=== PATIENT | female | born 1970 | race Caucasian/White ===

== ENCOUNTER 2017-10-11 16:59 | Emergency (ER) | payer BC ==
[~2017-10-11] VITALS: Ht 162.5 cm; Wt 108.9 kg
[~2017-10-11 16:59] MED LIST: ATIVAN1 MG PO; BACTRIM DS 8001 TA1 PO; BENTYL20 MG PO; CATAFLAM50 MG PO; CLINDAMYCIN HC300 MG PO; CORTISPORIN SUS10 ML OT; CYCLOBENZAPRINE10 MG PO; DIABETA5 MG PO; EES400 MG PO; GLUCOPHAGE1000 MG; GLUCOPHAGE1000 MG PO; GLUCOPHAGE500 MG; GLUCOPHAGE500 MG PO; HYDROCODONE BIT1 T11 PO; LEVOFLOXACIN500 MG PO; LEVOTHROID0.137 MG PO; LISINOPRIL10 MG PO; LISINOPRIL20 MG PO; LISINOPRIL5 MG PO; MEDROL DOSEPAK4 MG PO; METFORMIN1000 MG PO; METFORMIN500 MG PO; MOTRIN800 MG PO; NAPROSYN500 MG PO; NORCO 5-325 TA1 EACH PO; PHENERGAN25 M1 PO; PREDNISONE20 MG PO; PYRIDIUM200 M1 PO; PYRIDIUM200 MG PO; ROBITUSSIN AC 10 MG/ PO; ROBITUSSIN AC 110 ML PO; SYNTHROID,LEV150 MCG PO; SYNTHROID25 MCG PO; TAMIFLU 75MG CA75 MG PO; TRAJENTA; TRAMADOL HCL50 MG PO; TYLENOL WITH CO1 TA1 PO; VISTARIL25 MG PO; ZITHROMAX Z PA250 MG PO; ZITHROMAX250 MG PO; ZOFRAN4 MG PO; Zofran4 MG PO
[2017-10-11] MEDS ORDERED: OMNICEF300 MG PO (17:12)
== END 2017-10-11 17:21 | disposition home or self-care (01) ==
LOC: ED 16:59
DX: H65.92 Unspecified nonsuppurative otitis media, left ear (principal); E11.9 Type 2 diabetes mellitus without complications; Z88.0 Allergy status to penicillin; Z88.5 Allergy status to narcotic agent; Z88.8 Allergy status to other drugs, medicaments and biological substances; Z79.899 Other long term (current) drug therapy

== ENCOUNTER 2017-11-19 16:44 | Emergency (ER) | payer BC ==
[~2017-11-19 16:44] MED LIST changes: +OMNICEF300 MG PO
[2017-11-19 17:31] LABS: BASO # 0.1 10*3/uL (0.0-0.1); BASO % 0.7 % (0.0-1.0); EOS # 0.4 10*3/uL (0.0-0.4); EOS % 4.3 % (1.0-4.0); HEMOGLOBIN 14.8 g/dl (12.0-16.0); LYMPH # 2.3 10*3/uL (1.3-4.4); LYMPH % 27.2 % (27.0-41.0); MEAN CORPUSCULAR HGB 29.2 pg (27.0-31.0); MEAN CORPUSCULAR HGB CONC 33.6 g/dl (33.0-37.0); MEAN PLATELET VOLUME 11.1 fl (9.6-12.3); MONO # 0.5 10*3/uL (0.1-1.0); MONO % 5.7 % (3.0-9.0); NEUT # 5.3 10*3/uL (2.3-7.9); NEUT % 61.7 % (47.0-73.0); PLATELET COUNT AUTOMATED 276 10*3/uL (130-400); RED BLOOD COUNT 5.06 10*6/uL (4.10-5.10); RED CELL DISTRI WIDTH 13.4 % (0-14.5); WHITE BLOOD COUNT 8.6 10*3/uL (4.8-10.8)
[2017-11-19 17:47] LABS: ALBUMIN 4.1 gm/dl (3.1-4.5); ALKALINE PHOSPHATASE 100 U/L (45-117); BUN 14 mg/dl (7-24); CHLORIDE 106 mmol/L (98-107); CREATININE 0.85 mg/dL (0.55-1.02); POTASSIUM 4.2 mmol/L (3.5-5.1); SGOT/AST 25 IU/L (3-35); SGPT/ALT 50 U/L (12-78); SODIUM 138 mmol/L (136-145)
== END 2017-11-19 19:08 | disposition home or self-care (01) ==
LOC: ED 16:44
PROVIDERS: Nurse Practitioner Family
DX: R51 Headache (principal); R03.0 Elevated blood-pressure reading, without diagnosis of hypertension; E23.6 Other disorders of pituitary gland; E11.9 Type 2 diabetes mellitus without complications; Z79.899 Other long term (current) drug therapy; Z98.890 Other specified postprocedural states; Z88.5 Allergy status to narcotic agent; Z88.0 Allergy status to penicillin

== ENCOUNTER → 2017-12-22 | Outpatient (CLI) | payer BC ==
[~2017-12-22] MED LIST changes: +CIPRO500 MG PO; +COZAAR100 MG PO; +GLYBURIDE5 MG PO; +LEVOTHYROXINE150 MCG PO; +VICTOZA 3-PAK6 MG/ML SC; +ZOCOR5 MG PO
== END | disposition home or self-care (01) ==
LOC: MRI 10:37
DX: D32.0 Benign neoplasm of cerebral meninges (principal); H53.8 Other visual disturbances; H35.81 Retinal edema

== ENCOUNTER → 2018-01-18 | Outpatient (CLI) | payer BC | END | disposition home or self-care (01) | LOC: LAB 16:31 | DX: D35.2 Benign neoplasm of pituitary gland (principal) ==

== ENCOUNTER → 2018-01-31 | Outpatient (CLI) | payer BC ==
[2018-01-31 17:28] LABS: FREE T4 1.16 ng/dl (0.76-1.46); THYROID STIM HORMONE (HS) 0.924 uIU/ml (0.358-4.75)
[2018-02-01 08:07] LABS: FOLLICLE STIMULATING HORMONE 2.9 mIU/mL (.); LUTEINIZING HORMONE 004283 4.8 mIU/mL (.)
== END | disposition home or self-care (01) ==
LOC: LAB 16:21
PROVIDERS: Physician Assistant
DX: R22.0 Localized swelling, mass and lump, head (principal)

== ENCOUNTER → 2018-02-09 | Outpatient (CLI) | payer BC | END | disposition home or self-care (01) | LOC: MRI 12:48 | DX: H54.7 Unspecified visual loss (principal); R22.0 Localized swelling, mass and lump, head ==

== ENCOUNTER → 2018-02-14 | Outpatient (CLI) | payer BC ==
[2018-02-17 17:35] LABS: CORTISONE, URINE 52 ug/L (Undefined)
== END | disposition home or self-care (01) ==
LOC: LAB 08:00
PROVIDERS: Physician Assistant
DX: R22.0 Localized swelling, mass and lump, head (principal)

== ENCOUNTER → 2018-03-03 | Outpatient (CLI) | payer BC ==
--- NOTE | ~2018-03-03 | EKG ---
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
== END | disposition home or self-care (01) ==
LOC: RAD 15:50
DX: R22.0 Localized swelling, mass and lump, head (principal)

== ENCOUNTER 2018-05-12 13:23 | Inpatient (IN) | payer BC ==
[~2018-05-12] VITALS: Ht 162.6 cm; Wt 141.0 kg
--- NOTE | ~2018-05-12 | PR ---
[place], [place] PROGRESS NOTE NAME: MARIBEL MEYER UNIT #: [id number] ROOM: 424 DOCTOR: BRIDGET YEAGER MD,CASEY BIRTHDATE: [birth year] DOS: 05/15/2018 PULMONARY PROGRESS NOTE SUBJECTIVE: The patient stated reduction in respiratory symptoms of coughing and reduction of symptoms of shortness of breath. There were no symptoms of dizziness or headache. She has been ambulating to some extent with decreased shortness of breath symptoms. Denies symptoms of chest pain. Denies symptoms of hemoptysis. Denies symptoms of nausea or vomiting. OBJECTIVE: VITAL SIGNS: Which were recorded showed normal temperature, respiratory rate 18, heart rate 82, blood pressure 112/49 this afternoon. The pulse ox saturation at rest on room air was 97% saturation. HEENT: Head was atraumatic. Eyes nonicterus. NECK: Supple. CARDIOVASCULAR: S1 and S2 audible. LUNGS: Without any wheeze or crackles. ABDOMEN: Soft, nontender, bowel sounds present. EXTREMITIES: No acute edema. IMPRESSION: 1. The patient with stable respiratory status with acute pulmonary embolism, which has been improving gradually with current plan of treatment. 2. The patient with chronic obesity as well. 3. Status post recent removal of meningioma of the brain. PLAN OF THERAPY: No changes in the plan of care from pulmonary standpoint. Continue the current therapy and plan as is in progress without any changes. Consider possible discharge in the morning on oral anticoagulant as Xarelto. CASEY GILL MD CM:PNTRANS 1739 CASEY YEAGER MD 05/16/18 0312 interface
--- NOTE | ~2018-05-12 | CON ---
[place], [place] REPORT OF CONSULTATION NAME: MARIBEL MEYER UNIT #: [id number] ROOM: 424 DOCTOR: BRIDGET YEAGER MDCASEY BIRTHDATE: [birth year] DOS: 05/13/2018 PULMONARY CONSULTATION EVALUATION AND MANAGEMENT: REASON FOR CONSULTATION: Assess the patient for current acute thromboembolism and pulmonary embolism. HISTORY OF PRESENT ILLNESS: This is a 47-year-old white female patient who has been recently known with a diagnosis of meningioma of the brain. The patient underwent craniotomy in late 02/2018. She has been noted with the possibility of adrenal insufficiency. The patient was given the Decadron later on hydrocortisone for 2 weeks. With the use of corticosteroids, the patient has been noted significant weight gain. For the past one week, she started with having symptoms of exercise intolerance with increased shortness of breath, which worsened significantly. Shortness of breath currently, occurring for the patient prior to assess emergent with walking only few feet on level surface. She was also complaining of some discomfort in the back of the chest, but stated there was not a true pleuritic chest pain. She has called the physician diploma medical assistant patient in [facility] as she has been followed up by the surgeon and was advised to be assessed patient in the Emergency Room for further assessment. She has been assessed in the Emergency Room and were noted with acute pulmonary embolism. She was also complaining of symptoms of dizziness and stating that she was feeling that she may pass out, but has not had any unconsciousness. REVIEW OF SYSTEMS: CONSTITUTIONAL: She does complain of fatigue. There are no symptoms of fatigue or tiredness. EYES: Denies any burning, redness, or tenderness. EARS, NOSE, THROAT SYMPTOMS: Denies sore throat, hoarseness, otalgia, postnasal drainage or epistaxis. CARDIOVASCULAR: Denies any angina pain keep edema or pain of the lower extremities. GASTROINTESTINAL: Dysphagia, nausea, vomiting, diarrhea, abdominal pain, hematemesis, melena, or hematochezia. GENITOURINARY: Denies dysuria, suprapubic pain, hematuria. MUSCULOSKELETAL: No acute joint pain, redness, or tenderness. GENITOURINARY: Symptoms of dysuria, suprapubic pain, hematuria. CENTRAL NERVOUS SYSTEM: Denies dizziness, headache at this time. Symptoms of dizziness, which are reported at home, has not been present at this time. Diagnosis of seizures, status post craniotomy in 02/2018 for meningioma management. Remaining systems were reviewed. They were noted all negative. PAST MEDICAL HISTORY: 1. Meningioma with craniotomy in 02/2008 at [facility]. 2. Type 2 diabetes mellitus, poorly controlled. 3. Essential hypertension. 4. Hypothyroidism. [place], [place] REPORT OF CONSULTATION NAME: MARIBEL MEYER UNIT #: [id number] ROOM: [facility] DOCTOR: CASEY VALDES MD BIRTHDATE: [birth year] 5. Severe obesity. SOCIAL HISTORY: He is single, does not have any children. She has been noted very low grade tobacco use about half a pack of cigarettes per week, ____. Denies any alcohol use or any illicit drugs. FAMILY HISTORY: The patient's father is living 70 years old, currently in the nursing facility. Mother is living 60 years old without any known medical illnesses. MEDICATIONS: Medications, which were listed at home on admission in the medication reconciliation assessment. 1. Coreg 6.25 mg b.i.d. 2. Pepcid 20 mg p.o. b.i.d. 3. Hydrocortisone tablets 20 mg p.o. at 8:00 a.m. and 10 mg at 1500 hours. 4. Levothyroxine 150 mcg daily. 5. Cozaar 100 mg p.o. daily. 6. Metformin 1000 mg p.o. b.i.d. 7. Oxycodone p.r.n. use. 8. Simvastatin 5 mg at bedtime. 9. Lantus insulin. DRUG ALLERGIES: 1. PROMETHAZINE. 2. PENICILLIN. CURRENT MEDICATIONS: administered, the patient was noted as use of unfractionated therapeutic heparin until this morning, it has been discontinued. The patient started on Xarelto. Other medications used for the patient was noted, metformin, simvastatin, hydrocortisone, losartan, levothyroxine, Lantus insulin, famotidine, Coreg, DuoNeb, and OxyContin 5-10 mg p.r.n. for the pain management. PHYSICAL EXAMINATION: GENERAL: This is a 47-year-old female patient who has been currently sitting comfortably on the bed without any obvious distress. Height of 5 feet 4 inches, weight of 310 pounds, BMI noted severe morbid obesity as a BMI of 53. VITAL SIGNS: For the patient which were recorded shows the temperature was noted as normal, respiratory rate 16-20, heart rate 74-85, blood pressure 112/61-137/56. The pulse oxygen saturation recorded as 97% saturation at rest on room air. HEENT: Chronic obesity. Head was atraumatic. Eyes nonicterus. NECK: Supple. CARDIOVASCULAR: S1, S2 audible. LUNGS: Noted without any wheezing or crackles. ABDOMEN: Noted soft with morbid obesity. Bowel sounds present without tenderness. EXTREMITIES: The patient was noted without any acute edema. Chronic obesity findings and cyanosis, clubbing. VISIBLE SKIN: No lesions or rashes. [place], [place] REPORT OF CONSULTATION NAME: MARIBEL MEYER UNIT #: [id number] ROOM: 424 DOCTOR: BRIDGET YEAGER MDCASEY BIRTHDATE: [birth year] CENTRAL NERVOUS SYSTEM: Cranial nerves 2-12 intact. No focal deficit. MUSCULOSKELETAL: Without acute deformities. LABORATORY DATA: The patient's CBC that was done just to admission, WBC count 11.4, otherwise normal CBC. The CMP that was done yesterday essentially noted as normal CMP except albumin 3.0. The patient has ultrasound of the bilateral lower extremities was done for this patient does not show any evidence of deep venous thrombosis, lower extremity. Chest x-ray, noted free of any acute abnormalities view from the PACS images yesterday. PT/PTT that was done yesterday, normal at the baseline and PTT this morning noted elevated at 164. CTA of the chest that was done yesterday with the patient in detail from the PACS images. It shows evidence of pulmonary embolism in the secondary branches of the pulmonary artery of right lower lobe as well as in the left upper lobe patient and the superior segment of the left upper lobe. There was no visible lymphadenopathy for this patient any mass-like lesion infiltration, pleural effusions. Small haziness noted in the lungs as well with the convexities significance unknown. IMPRESSION: 1. The patient was presented to the hospital with relative immobility after the recent craniotomy, the patient has developed acute bilateral pulmonary embolism as well. The patient does have symptoms of shortness of breath with the chest discomfort and symptoms of dizziness, but there were no syncopal episodes. 2. The patient with morbid obesity, also risk factor for the acute thromboembolism. 3. Recent surgery with removal of meningioma up as well. 4. The patient with current deficiency of the corticosteroid currently getting the Cortef for the long-term management for the patient per recommendation from the [facility]. However, the medical record was not available to review. 5. The patient with a history of type 2 diabetes mellitus. 6. History of hypothyroidism. 7. Low grade tobacco use with the possibility of small airway disease on the lung will be considered current haziness. 8. Mild enlarged lymph node, nonpathological as well. PLAN OF MANAGEMENT: At this time, agree with switching the patient from the Lovenox rather from the unfractionated therapeutic heparin patient with the loading dose of Xarelto for the patient 50 mg b.i.d. Monitoring hemodynamically the patient's current medical management was next 24 hours and possible consideration home discharge, outpatient workup for hypercoagulability should be done to exclude any underlying hypercoagulable disorder, which were also may increase the risk of thromboembolism for future as well and to determine the duration of the anticoagulation minimum treatment if there would be no hypercoagulable status was noted would be 3 months with anticoagulants. Abstinence of tobacco was discussed with the patient. Other supportive therapy, plan and management, additional treatment changes needs to be made for this based on progression of the illness. Supportive care therapy, plan of management, care for the patient at this time. Usual ambulation without any exertion or squatting for the patient was encouraged for this patient. Other [place], [place] REPORT OF CONSULTATION NAME: MARIBEL MEYER Amy UNIT #: [id number] ROOM: 424 DOCTOR: BRIDGET YEAGER MD,CASEY BIRTHDATE: [birth year] supportive therapy, plan of management with the treatment with her previous home medication, which has been continued by Dr. Mickie Collins. The assessment and management was discussed with Dr. Mickie Collins as well on the phone. Thank you for allowing me to participate in the care of this patient. CASEY GILL MD CM:CONSTR:REPORT OF CONSULTATION 1424 05/14/18 0109 interface
--- NOTE | ~2018-05-12 | PR ---
[place], [place] PROGRESS NOTE NAME: MARIBEL MEYER UNIT #: [id number] ROOM: 424 DOCTOR: BRIDGET YEAGER MD,CASEY BIRTHDATE: [birth year] DOS: 05/16/2018 SUBJECTIVE: The patient remained comfortable at this time without any distress, resting comfortably on the bed. Shortness of breath and dizziness symptoms have improved significantly. Denies chest pain or hemoptysis. Denies pain of the lower extremities. OBJECTIVE VITAL SIGNS: Normal temperature, respiratory rate 18, heart rate 70, blood pressure 115/75, pulse ox saturation on room air 98% saturation. HEENT: No acute change. CARDIOVASCULAR: S1, S2 audible. LUNGS: Without any wheezing or crackles. ABDOMEN: Soft, nontender. EXTREMITIES: No acute abnormal findings. IMPRESSION: 1. Acute pulmonary embolism noted bilaterally with improvement in respiratory symptoms. Continue gradually with the dizziness and shortness of breath. 2. Morbid obesity. PLAN OF MANAGEMENT: No changes in plan of care at this time. The patient has been currently planned for discharge home today. Continue all therapy, plan and management as previously. Usual care. CASEY GILL MD CM:PNBARB [id number] CASEY YEAGER MD 05/16/18 2333 interface
--- NOTE | ~2018-05-12 | PR ---
[place], [place] PROGRESS NOTE NAME: MARIBEL MEYER UNIT #: [id number] ROOM: 424 DOCTOR: NINA DELACRUZ MD BIRTHDATE: [birth year] DOS: SUBJECTIVE: The patient feels much better, looks much better. She is not short of breath. She does not have any chest pain, leg swelling slightly improved. OBJECTIVE: VITAL SIGNS: Blood pressure is 113/60, pulse of 76, respirations 19, temperature 99.0. LUNGS: Clear. HEART: Regular. ABDOMEN: Obese. EXTREMITIES: Trace edema bilaterally. LABORATORY DATA: This morning shows a glucose of 79, BUN 17, creatinine 0.72, sodium 142, potassium 3.4, chloride 105. WBC count is 7.9, hemoglobin and hematocrit were normal, platelets were normal. ASSESSMENT AND PLAN: 1. Hypokalemia, supplementation to be given. 2. Extensive pulmonary embolism, status-post surgery. The patient is advised to ambulate. Plan is to discharge her to home tomorrow. We will arrange for PT, OT at home. 3. Type 2 diabetes mellitus, insulin-dependent. Blood sugars controlled. NINA DELACRUZ MD CM:PNTRANS [id number] NINA DLEACRUZ MD 05/16/18 0711 interface
--- NOTE | ~2018-05-12 | PR ---
[place], [place] PROGRESS NOTE NAME: MARIBEL MEYER UNIT #: [id number] ROOM: 424 DOCTOR: BRIDGET YEAGER MD,CASEY BIRTHDATE: [birth year] DOS: 05/14/2018 SUBJECTIVE: The patient has been noted comfortable at this time, resting on the bed without any acute distress. She was not noted with any ongoing acute new respiratory complaints at the present time. Shortness of breath was still noted, exertion remains unchanged. There was no hemoptysis. OBJECTIVE: VITAL SIGNS: Normal temperature, respiratory rate 17, heart rate 81, blood pressure 118/89. Pulse oxygen saturation is 99% saturation. HEENT: Examination shows head was atraumatic. Eyes nonicterus. NECK: Supple. CARDIOVASCULAR: S1, S2 is audible. LUNGS: The patient was noted without any wheezing or crackles at the present time. ABDOMEN: Soft and nontender. EXTREMITIES: No new changes. IMPRESSION: 1. Acute bilateral pulmonary embolism was noted at this time. 2. Status post meningioma removal, currently noted with physiologic dose of hydrocortisone oral tablets. 3. Chronic obesity. 4. Exertion and shortness of breath related pulmonary embolus, remains stable. PLAN OF TREATMENT: The patient would be continued on the current therapy, plan of management. Discharge planning per primary care physician. No additional intervention at this time will be done. Outpatient assessment for hypercoagulability as well to be done. CASEY GILL MD CM:PNTRANS [id number] CASEY YEAGER MD 05/14/18 1225 interface
--- NOTE | ~2018-05-12 | PR ---
[place], [place] PROGRESS NOTE NAME: MARIBEL MEYER UNIT #: [id number] ROOM: 424 DOCTOR: NINA DELACRUZ MD BIRTHDATE: [birth year] DOS: SUBJECTIVE: The patient is feeling good. She did sleep well. OBJECTIVE: VITAL SIGNS: Graphic trend shows a pressure 115/75, pulse of 70, respirations 18, temperature 98.2. LUNGS: Clear. HEART: Regular. ABDOMEN: Obese, soft, nontender. EXTREMITIES: Without any edema. LABORATORY DATA: Blood sugar was 180. BMP: The rest of the BMP was normal. WBC count is normal. ASSESSMENT AND PLAN: 1. Acute pulmonary embolism, extensive, stable and improving. 2. Type 2 diabetes mellitus, controlled. 3. workup was done. I do not have the results yet, but the patient to remain on Xarelto for 6 months. Stable, we will plan to discharge the patient today. NINA DELACRUZ MD CM:PNTRANS [id number] NINA DELACRUZ MD 05/16/18 1016 interface
--- NOTE | ~2018-05-12 | EKG ---
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
--- NOTE | ~2018-05-12 | DS ---
[place], [place] DISCHARGE SUMMARY NAME: MARIBEL MEYER UNIT #: [id number] ROOM: [facility] DOCTOR: NUBIA CHASENINA BIRTHDATE: [birth year] DOS: 05/16/2018 DIAGNOSES: 1. Acute extensive PE. Venous Doppler negative, hypercoagulable workup still in place, do not have the results at the time of discharge: 2. Recent meningioma resection with craniotomy. 3. Loss of vision, right eye. 4. Type 2 diabetes mellitus, insulin-dependent. 5. Benign hypertension. 6. Hypothyroidism. DISCHARGE MEDICATIONS: Xarelto 15 b.i.d. for 3 weeks and then converted to 20 daily, doxycycline 100 b.i.d. for 7 days. Rest of the meds are the same as in admission, metformin 1000 b.i.d., losartan 100 daily, levothyroxine 150 mcg daily, Zocor 5 daily, Lantus 50 units twice a day, Coreg 6.25 twice a day, oxycodone 5 q. 6 p.r.n. and 10 at bedtime p.r.n., Pepcid 20 b.i.d., hydrocortisone 20 daily in the morning and 10 in the evening. HOSPITAL COURSE: This patient is a 47-year-old, very well known to us, who comes in with shortness of breath. Please refer to H and P dictated for details. The patient was evaluated in the ER, had a CT angiogram done, which showed extensive PE both lungs. Venous Doppler was negative. The patient was admitted and placed on IV heparin protocol, switched to Xarelto. Dr. Gamboa from Pulmonary did see the patient in consultation, advised continued regimen. The CT of the chest also showed atelectasis for which the patient was started on incentive spirometry. Low-grade fever with hypoxemia was noted. IV antibiotics were added. The patient continues to improve and is not having any new complaints. Blood sugars have been controlled. She tolerated the Xarelto well. She is ambulating without any more shortness of breath. Oxygenation on room air is within normal limits. So the plan is to discharge her to home today to follow up as an outpatient. [place], [place] DISCHARGE SUMMARY NAME: MARIBEL MEYER UNIT #: [id number] ROOM: 424 DOCTOR: NINA DELACRUZ MD BIRTHDATE: [birth year] NINA DELACRUZ MD CM:DARIANA 1 NINA DELACRUZ MD 05/16/18902 interface
--- NOTE | ~2018-05-12 | PR ---
[place], [place] PROGRESS NOTE NAME: MARIBEL MEYER UNIT #: [id number] ROOM: 424 DOCTOR: NINA DELACRUZ MD BIRTHDATE: [birth year] DOS: 05/14/2018 SUBJECTIVE: The patient feels tired, has some slight headaches. She feels that she is straining the right eye trying to see. During yesterday afternoon, the patient did ambulate to the bathroom, became quite short of breath and was advised to start using the incentive spirometry. The patient also had a low-grade fever at that time. OBJECTIVE: VITAL SIGNS: Graphic trend shows a pressure of midnight 110/89, pulse of 70, respirations 18, temperature 97.1. LUNGS: Clear. HEART: Regular. ABDOMEN: Obese, soft, nontender. EXTREMITIES: Trace edema bilaterally. ASSESSMENT AND PLAN: 1. Acute onset of shortness of breath yesterday while ambulating to the bathroom from extensive PE. The patient also had a low-grade temperature, was started on IV azithromycin and the patient is continued on the Xarelto. Appreciate Dr. Gamboa's input. The patient was given a bedside commode. Oxygen was also started. 2. Recent craniotomy with meningioma resection with vision loss on the right eye. Could put a patch on so the patient does not strain. 3. Atelectasis lung prince. The patient is advised to use an incentive spirometry. Azithromycin was added because of the low-grade fever and possibility of pneumonia behind the atelectasis. 4. Type 2 diabetes mellitus. Blood sugars in the 200s. Continue current medications. NINA DELACRUZ MD CM:PNTRANS [id number] NINA DELACRUZ MD 05/14/182234 interface
--- NOTE | ~2018-05-12 | WRIGHTHP ---
[place], [place] PATIENT HISTORY AND PHYSICAL EXAM NAME: [facility]: [id number] UNIT #: [id number] ROOM: 424 DOCTOR: NINA DELACRZU MD BIRTHDATE: [birth year] DOS: 05/13/2018 HISTORY OF PRESENT ILLNESS: The patient is a 47-year-old, very well known to us. She underwent a craniotomy for removal of meningioma in late February 2018. Since then, she has been partially disabled and not working. She was initially placed on Decadron at the time of discharge from [facility]. This was converted to hydrocortisone about 2 weeks ago. The hydrocortisone is getting slowly tapered down. The patient said that she has been increasingly swollen and quite dizzy and lightheaded and short of breath for the last few days. She also has noticed increasing leg edema, thought it was all weight gain from steroids and did not pay too much attention, but yesterday she had quite a lot of shortness of breath and swelling. She called [facility] who advised that she be seen in the Emergency Room. In the ER, she was evaluated and was found to have PE and was admitted. She denies having any chest pains, palpitations, shortness of breath this morning. Denies having any fever, chills, any abdominal pain, nausea, any emesis. PAST MEDICAL HISTORY: Significant for 1. Again, recent removal of meningioma, craniotomy with meningioma removal at [facility] in February 2018. 2. Type 2 diabetes mellitus, poorly controlled, insulin-dependent. 3. Benign hypertension. 4. Hypothyroidism. MEDICATIONS: She should be currently on are Coreg 6.25 twice a day, Pepcid 20 twice a day, hydrocortisone 20 in the morning and 10 in the evening, levothyroxine 150 mcg daily, losartan 100 daily, metformin 1000 b.i.d., oxycodone 5 q. 6 hours and 10 mg at night, Zocor 5 at bedtime, insulin 50 units subcutaneous twice a day, Lantus. SOCIAL HISTORY: Nonsmoker, does not use any alcohol. PHYSICAL EXAMINATION: GENERAL: She is awake and alert and oriented. VITAL SIGNS: Graphic trend shows blood pressure 103/49, pulse of 80, respirations 18, temperature 98.1. LUNGS: Diminished breath sounds. No wheezes, rales or rhonchi heard. HEART: Regular. ABDOMEN: Obese. EXTREMITIES: Trace pedal edema bilaterally. LABORATORY DATA: At the time of admission: EKG showed sinus rhythm. WBC count is 11.4, hemoglobin 12.2, hematocrit 38.6, platelets 261. Comprehensive: Glucose 111, BUN 12, creatinine 0.75. Electrolytes normal. Chest x-ray was negative. CTA of the chest showed multiple filling defects in the right lower lobe, pulmonary artery as well as in the basilar segments, left upper lobe and left lower lobe, atelectasis was also noted. ASSESSMENT AND PLAN: 1. Acute pulmonary embolism, extensive with shortness of breath. She has been [place], [place] PATIENT HISTORY AND PHYSICAL EXAM NAME: MARIBEL MEYER UNIT #: [id number] ROOM: 424 DOCTOR: NINA DELACRUZ MD BIRTHDATE: [birth year] admitted. IV heparin was started, converted to Xarelto and consultation with Dr. Gamboa obtained. 2. Atelectasis. Breathing treatments and incentive spirometry has been ordered. 3. Swelling of the lower legs. Deep venous thrombosis has been ruled out. It is possible that she did have deep venous thrombosis and it is mobilized. We will go ahead and give her 1 dose of Lasix today. 4. Meningioma with recent craniotomy and removal. 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 After surgery, she has not had any improvement in the vision on the right eye. 5. Type 2 diabetes mellitus, controlled on the current dose of insulin and metformin. NINA DELACURZ MD CM:HISPHYS:PATIENT HISTORY AND PHYSICAL EXAMINATION [id number] NINA DELACRUZ MD 05/13/18 1005 interface
[2018-05-12 13:24] VITALS: BP 137/56
[2018-05-12 14:09] LABS: BASO % 0.2 % (0.0-1.0); EOS # 0.1 10*3/uL (0.0-0.4); EOS % 0.7 % (1.0-4.0); HEMATOCRIT 38.6 % (37.0-47.0); HEMOGLOBIN 12.2 g/dl (12.0-16.0); LYMPH # 2.5 10*3/uL (1.3-4.4); LYMPH % 22.3 % (27.0-41.0); MEAN CELL VOLUME 92.1 fl (81.0-99.0); MEAN CORPUSCULAR HGB 29.1 pg (27.0-31.0); MEAN CORPUSCULAR HGB CONC 31.6 g/dl (33.0-37.0); MEAN PLATELET VOLUME 10.5 fl (9.6-12.3); MONO # 0.9 10*3/uL (0.1-1.0); MONO % 7.6 % (3.0-9.0); NEUT # 7.7 10*3/uL (2.3-7.9); NEUT % 67.4 % (47.0-73.0); PLATELET COUNT AUTOMATED 261 10*3/uL (130-400); RED BLOOD COUNT 4.19 10*6/uL (4.10-5.10); RED CELL DISTRI WIDTH 14.3 % (0-14.5); WHITE BLOOD COUNT 11.4 10*3/uL (4.8-10.8)
[2018-05-12 14:13] LABS: ACT PARTIAL THROMBO TIME 22.3 SECONDS (20.8-31.5); INTERNATIONAL NORM RATIO 0.9 (2.0-3.5)
[2018-05-12 14:14] LABS: ALKALINE PHOSPHATASE 82 U/L (45-117); BUN 12 mg/dl (7-24); CHLORIDE 106 mmol/L (98-107); CREATININE 0.75 mg/dL (0.55-1.02); POTASSIUM 4.2 mmol/L (3.5-5.1); SGOT/AST 18 IU/L (3-35); SGPT/ALT 43 U/L (12-78); SODIUM 140 mmol/L (136-145)
[2018-05-12 14:19] LABS: TROPONIN I < 0.015 ng/ml (<0.045)
[2018-05-12 17:12] VITALS: BP 110/60
[2018-05-12 17:30] VITALS: BP 113/62
--- NOTE | 2018-05-12 17:30 | NUR ---
A 47, admitted to , under the services of NINA Mcgee MD with a diagnosis of PE. Chief complaint is DYSPNEA, SWELLING. Patient arrived via stretcher from ER. Monitor applied. Initial assessment completed. Vital signs taken and recorded. NINA MCGEE MD notified of admission to the unit. Orders received. See assessment for past medical history, medications and allergies. Patient and/or family oriented to unit. [address] visitation policy reviewed. Clothing/patient valuable form completed. ELDON MERINO
[2018-05-12] MEDS ORDERED: LANTUS SOL100 UNIT/1 SQ (18:33)
[2018-05-12] MEDS ORDERED: COREG6.25 MG PO (18:34)
[2018-05-12] MEDS ORDERED: OXYCODONE5 M1 PO (18:36)
[2018-05-12] MEDS ORDERED: OXYCODONE HCL10 M1 PO (18:36)
[2018-05-12] MEDS ORDERED: OXYBUTYNIN5 MG PO (18:37)
[2018-05-12] MEDS ORDERED: PEPCID20 MG PO (18:37)
[2018-05-12] MEDS ORDERED: HYDROCORTISONE20 M2 PO (18:38)
[2018-05-12] MEDS ORDERED: HYDROCORTISONE10 MG PO (18:38)
[2018-05-12 20:00] VITALS: BP 112/61
--- NOTE | 2018-05-12 21:18 | NUR ---
PRN OXY GIVEN FOR PT COMPLAINTS OF HEAD PAIN. RATING IT 7/10. CALL LIGHT WITHIN REACH, WILL MONITOR
--- NOTE | 2018-05-12 21:38 | NUR ---
2ND IV STARTED PER PROTOCOL. 22 GAUGE IN LEFT ARM.
--- NOTE | 2018-05-12 22:30 | NUR ---
PRN MEDICATION EFFECTIVE PER PT
[2018-05-13] VITALS: BP 103/49
--- NOTE | 2018-05-13 00:35 | NUR ---
RESTING IN BED WITH HOB ELEVATED. CALL LIGHT REACH. HEPARIN GTT CONT. DENIES SOB AT PRESENT. BEDREST CONT. POPSICLE FOR C/O'S SORE THROAT. WILL CONT TO MONITOR
--- NOTE | 2018-05-13 04:07 | NUR ---
RESTING IN BED WITH EYES CLOSED. APPEARS TO BE SLEEPING.
--- NOTE | 2018-05-13 06:11 | NUR ---
HEPARIN GTT CONT. REMAINS WIHTOUT C/O'S. NO DISTRESS NOTED. RESPIRATIONS EASY. CONDITION GUARDED.
[2018-05-13 08:00] VITALS: BP 112/68
--- NOTE | 2018-05-13 09:27 | NUR ---
DR GILL ON FLOOR AND NOTIFIED OF CONSULT.
--- NOTE | 2018-05-13 11:00 | NUR ---
Flight Service Agent in to talk to patient. Patient states lives at home with her mother. There are 12 steps in the home. Physician: Dr. Mickie Collins [facility]: [facility] Home health services: none Patient's level of ADLs: INDEPENDENT Patient has working utilities: yes DME: none Follow-up physician's appointment after d/c: she prefers to make her own follow up appt after discharge Does patient want to access PORTAL?: no Discharge plan discussed with patient. She lives at home with her mother. She is independent in her ADLs and ambulation. Discussed home health care services and she denies any home needs a this time. When medically stable she will be discharged to home. ALYSON FERNANDO
[2018-05-13 12:00] VITALS: BP 116/64
--- NOTE | 2018-05-13 15:52 | NUR ---
PT MEDICATED WITH OXYCODONE FOR C/O RIGHT UPPER CHEST PAIN. CALL LIGHT IN REACH. WILL MONITOR
[2018-05-13 16:00] VITALS: BP 119/47
--- NOTE | 2018-05-13 16:04 | NUR ---
PT AMBULATED TO BATHROOM AND C/O TO BE MORE DYSPENIC THAN BEFORE ALSO RIGHT UPPER CHEST/LUNG PAIN. DR DELACRUZ CALLED AND NOTIFIED OF SYMPTOMS AND SLIGHT TEMP OF 99.4. NEW ORDERS RECEIVED. SHE STATES FOR THE PT TO COMTINUE WITH BED REST. PT/MOTHER INFORMED OF NEW ORDERS.
--- NOTE | 2018-05-13 17:00 | NUR ---
MEDICATION EFFECTIVE PER PT, CALL LIGHT IN REACH. WILL MONITOR
--- NOTE | 2018-05-13 19:51 | NUR ---
PATIENT IS AAOX3 RESTING IN BED W/ EASY AND REGULAR RESPERS ON 2L VIA NC. ASSESSMENT IS COMPLETE WITH NO C/O OR S/S OF DISTRESS NOTED AT THIS TIME. BED IS LOW, LOCKED, AND CALL LIGHT IS WITHIN REACH. SEE SHIFT ASSESSMENT.
[2018-05-13 20:00] VITALS: BP 114/64
--- NOTE | 2018-05-13 21:00 | NUR ---
BSG 246.
--- NOTE | 2018-05-13 22:16 | NUR ---
2200 MEDICATIONS GIVEN WELL PRN OXY IR FOR C/O GENERALIZED PAIN RATING A 5/10. PATIENT TOLERATED WELL, CALL LIGHT IS WITHIN REACH. WILL MONITOR EFFECT.
[2018-05-14] VITALS: BP 110/89
[2018-05-14 08:00] VITALS: BP 118/62
[2018-05-14 12:00] VITALS: BP 105/57
--- NOTE | 2018-05-14 13:39 | NUR ---
Patient resting quietly with no c/o discomfort. Respirations easy and regular. Vital signs stable. No overt distress. GEOFF FRANCO
[2018-05-14 16:00] VITALS: BP 97/56
[2018-05-14 20:00] VITALS: BP 109/45
[2018-05-15] VITALS: BP 113/60
[2018-05-15 06:01] LABS: BASO % 0.4 % (0.0-1.0); EOS # 0.1 10*3/uL (0.0-0.4); EOS % 1.1 % (1.0-4.0); HEMATOCRIT 37.7 % (37.0-47.0); HEMOGLOBIN 11.9 g/dl (12.0-16.0); LYMPH # 2.6 10*3/uL (1.3-4.4); LYMPH % 32.8 % (27.0-41.0); MEAN CELL VOLUME 91.5 fl (81.0-99.0); MEAN CORPUSCULAR HGB 28.9 pg (27.0-31.0); MEAN CORPUSCULAR HGB CONC 31.6 g/dl (33.0-37.0); MEAN PLATELET VOLUME 10.5 fl (9.6-12.3); MONO # 0.6 10*3/uL (0.1-1.0); MONO % 8.1 % (3.0-9.0); NEUT # 4.5 10*3/uL (2.3-7.9); NEUT % 56.3 % (47.0-73.0); PLATELET COUNT AUTOMATED 259 10*3/uL (130-400); RED BLOOD COUNT 4.12 10*6/uL (4.10-5.10); RED CELL DISTRI WIDTH 14.6 % (0-14.5); WHITE BLOOD COUNT 7.9 10*3/uL (4.8-10.8)
[2018-05-15 06:15] LABS: BUN 17 mg/dl (7-24); CHLORIDE 105 mmol/L (98-107); CREATININE 0.72 mg/dL (0.55-1.02); POTASSIUM 3.4 mmol/L (3.5-5.1); SODIUM 142 mmol/L (136-145)
[2018-05-15 08:00] VITALS: BP 106/54
[2018-05-15 12:00] VITALS: BP 101/46
--- NOTE | 2018-05-15 12:03 | NUR ---
DR DELACRUZ ROUNDED AND SEEN PT. ORDERS RECIEVED.
[2018-05-15 16:00] VITALS: BP 112/49
--- NOTE | 2018-05-15 17:40 | NUR ---
DR GILL ROUNDED AND SEEN PT.
--- NOTE | 2018-05-15 19:04 | NUR ---
PT NOTIFIED ME THAT HER TOE WAS BLEEDING FROM HER"PICKING AN INGROWN TOENAIL". PT BLEEDING MODERATLY FROM LEFT GREAT TOE.DRESSING APPLIED AND DR SPANGLER NOTIFIED. ORDERS RECIEVED.
--- NOTE | 2018-05-15 19:36 | NUR ---
Shift chart check completed.24 HR chart check completed.
[2018-05-15 20:00] VITALS: BP 121/62
--- NOTE | 2018-05-15 22:14 | NUR ---
OXY IR 10MG BY MOUTH FOR GENERALIZED LUNG PAIN "7"/10.
--- NOTE | 2018-05-15 23:03 | NUR ---
EARLIER OXY IR EFFECTIVE.
[2018-05-16] VITALS: BP 115/75
[2018-05-16 06:30] LABS: BASO % 0.5 % (0.0-1.0); EOS # 0.1 10*3/uL (0.0-0.4); EOS % 1.3 % (1.0-4.0); HEMATOCRIT 37.4 % (37.0-47.0); LYMPH # 2.5 10*3/uL (1.3-4.4); MEAN CELL VOLUME 91.7 fl (81.0-99.0); MEAN CORPUSCULAR HGB 29.4 pg (27.0-31.0); MEAN CORPUSCULAR HGB CONC 32.1 g/dl (33.0-37.0); MEAN PLATELET VOLUME 10.4 fl (9.6-12.3); MONO # 0.6 10*3/uL (0.1-1.0); MONO % 7.6 % (3.0-9.0); NEUT # 4.3 10*3/uL (2.3-7.9); NEUT % 56.2 % (47.0-73.0); PLATELET COUNT AUTOMATED 259 10*3/uL (130-400); RED BLOOD COUNT 4.08 10*6/uL (4.10-5.10); RED CELL DISTRI WIDTH 14.4 % (0-14.5); WHITE BLOOD COUNT 7.6 10*3/uL (4.8-10.8)
[2018-05-16 06:54] LABS: BUN 14 mg/dl (7-24); CHLORIDE 104 mmol/L (98-107); CREATININE 0.75 mg/dL (0.55-1.02); POTASSIUM 3.6 mmol/L (3.5-5.1); SODIUM 141 mmol/L (136-145)
[2018-05-16] MEDS ORDERED: XARE15TA PO (08:43)
[2018-05-16] MEDS ORDERED: DOXYCYCLINE100 MG PO (08:43)
[2018-05-16] MEDS ORDERED: XARE20MG PO (08:43)
--- NOTE | 2018-05-16 10:07 | NUR ---
Discharge instructions reviewed with patient/family. Patient receptive and verbalizes understanding. Follow-up care arranged. Written instructions given to patient/family. CANDI VALERO
[2018-05-16 11:10] LABS: PROTEIN S, FREE 94 % (57-157); PROTEIN S, TOTAL 87 % (60-150)
[2018-05-16 12:12] LABS: PTT-LA 35.4 sec (0.0-51.9)
[2018-05-17 05:07] LABS: LUPUS DRVVT 56.8 sec (0.0-47.0)
[2018-05-17 06:10] LABS: LUPUS REFLEX INTERPRETATION Comment: (.)
== END 2018-05-16 10:07 | disposition home or self-care (01) | DRG 176 ==
LOC: ED 13:23 → EDHOLD 16:10 → 4E 16:10
PROVIDERS: Emergency Medicine; ADMIT Internal Medicine
DX: I26.99 Other pulmonary embolism without acute cor pulmonale (principal); J98.11 Atelectasis; D68.59 Other primary thrombophilia; Z68.43 Body mass index [BMI] 50.0-59.9, adult; M79.89 Other specified soft tissue disorders; I10 Essential (primary) hypertension; E11.9 Type 2 diabetes mellitus without complications; E87.6 Hypokalemia; E03.9 Hypothyroidism, unspecified; R59.9 Enlarged lymph nodes, unspecified; E66.01 Morbid (severe) obesity due to excess calories; E78.00 Pure hypercholesterolemia, unspecified; F17.210 Nicotine dependence, cigarettes, uncomplicated; H54.61 Unqualified visual loss, right eye, normal vision left eye; Z88.0 Allergy status to penicillin; Z88.8 Allergy status to other drugs, medicaments and biological substances; Z79.84 Long term (current) use of oral hypoglycemic drugs; Z79.899 Other long term (current) drug therapy; Z87.440 Personal history of urinary (tract) infections; Z82.49 Family history of ischemic heart disease and other diseases of the circulatory system; Z80.9 Family history of malignant neoplasm, unspecified

== ENCOUNTER → 2018-06-17 | Outpatient (CLI) | payer BC ==
[~2018-06-17] MED LIST changes: +COREG6.25 MG PO; +DOXYCYCLINE100 MG PO; +HYDROCORTISONE10 MG PO; +HYDROCORTISONE20 M2 PO; +LANTUS SOL100 UNIT/1 SQ; +OXYBUTYNIN5 MG PO; +OXYCODONE HCL10 M1 PO; +OXYCODONE5 M1 PO; +PEPCID20 MG PO; +XARE15TA PO; +XARE20MG PO
== END | disposition home or self-care (01) ==
LOC: MRI 06-10 13:00
DX: R22.0 Localized swelling, mass and lump, head (principal); I10 Essential (primary) hypertension

== ENCOUNTER → 2018-08-24 | Outpatient (CLI) | payer OTHER ==
[2018-08-24 08:33] LABS: BILIRUBIN NEGATIVE (NEGATIVE); BLOOD 2+ (NEGATIVE); CLARITY SL CLOUDY (CLEAR); COLOR YELLOW (YELLOW); GLUCOSE 3+ (NEGATIVE); KETONE 1+ (NEGATIVE); LEUKO ESTERASE NEGATIVE (NEGATIVE); NITRITE NEGATIVE (NEGATIVE); PH 5.5 (5.0-9.0); UROBILINOGEN 0.2 E.U./dl (0.2-1.0)
[2018-08-24 08:51] LABS: BASO # 0.1 10*3/uL (0.0-0.1); BASO % 0.7 % (0.0-1.0); EOS # 0.3 10*3/uL (0.0-0.4); EOS % 3.3 % (1.0-4.0); HEMATOCRIT 42.7 % (37.0-47.0); HEMOGLOBIN 13.6 g/dl (12.0-16.0); LYMPH # 2.6 10*3/uL (1.3-4.4); LYMPH % 33.9 % (27.0-41.0); MEAN CELL VOLUME 84.9 fl (81.0-99.0); MEAN CORPUSCULAR HGB CONC 31.9 g/dl (33.0-37.0); MEAN PLATELET VOLUME 11.6 fl (9.6-12.3); MONO # 0.6 10*3/uL (0.1-1.0); MONO % 8.4 % (3.0-9.0); NEUT # 4.1 10*3/uL (2.3-7.9); NEUT % 53.4 % (47.0-73.0); PLATELET COUNT AUTOMATED 369 10*3/uL (130-400); RED BLOOD COUNT 5.03 10*6/uL (4.10-5.10); RED CELL DISTRI WIDTH 13.6 % (0-14.5); WHITE BLOOD COUNT 7.6 10*3/uL (4.8-10.8)
[2018-08-24 09:03] LABS: BUN 7 mg/dl (7-24); CHLORIDE 104 mmol/L (98-107); CREATININE 0.91 mg/dL (0.55-1.02); POTASSIUM 3.9 mmol/L (3.5-5.1); SGOT/AST 27 IU/L (3-35); SGPT/ALT 48 U/L (12-78); SODIUM 139 mmol/L (136-145)
[2018-08-24 09:13] LABS: ALKALINE PHOSPHATASE 95 U/L (45-117); FREE T4 1.21 ng/dl (0.76-1.46); TOTAL PROTEIN 7.8 gm/dL (6.4-8.2)
[2018-08-24 09:19] LABS: BACTERIA 3+; WBC 16-20 wbc/hpf (0-5)
[2018-08-24 09:21] LABS: EPITHELIAL CELLS 20-30
[2018-08-24 09:47] LABS: VITAMIN D, 25-HYDROXY 27.8 ng/mL (30-100)
[2018-08-25 07:05] LABS: FOLLICLE STIMULATING HORMONE 14.6 mIU/mL (.); LUTEINIZING HORMONE 004283 12.2 mIU/mL (.); PROLACTIN 004465 17.7 ng/mL (4.8-23.3)
[2018-08-25 11:06] LABS: CREATININE,URINE 82.2 mg/dL (Not Estab.); MICRO ALBUMIN/CRE RATIO 35.2 (0.0-30.0)
== END | disposition home or self-care (01) ==
LOC: LAB 07:57
PROVIDERS: Internal Medicine Endocrinology, Diabetes & Metabolism
DX: E11.65 Type 2 diabetes mellitus with hyperglycemia (principal); D35.2 Benign neoplasm of pituitary gland; E03.4 Atrophy of thyroid (acquired); E53.9 Vitamin B deficiency, unspecified

== ENCOUNTER 2019-02-01 16:04 | Emergency (ER) | payer OTHER ==
[~2019-02-01] VITALS: Ht 162.5 cm; Wt 117.9 kg
[2019-02-01 17:34] LABS: BILIRUBIN NEGATIVE (NEGATIVE); BLOOD NEGATIVE (NEGATIVE); CLARITY CLEAR (CLEAR); COLOR YELLOW (YELLOW); GLUCOSE 3+ (NEGATIVE); KETONE NEGATIVE (NEGATIVE); LEUKO ESTERASE NEGATIVE (NEGATIVE); NITRITE NEGATIVE (NEGATIVE); PH 5.5 (5.0-9.0); SPECIFIC GRAVITY 1.015 (1.005-1.030); UROBILINOGEN 0.2 E.U./dl (0.2-1.0)
[2019-02-01 17:35] LABS: BASO # 0.1 10*3/uL (0.0-0.1); BASO % 0.5 % (0.0-1.0); EOS # 0.4 10*3/uL (0.0-0.4); EOS % 4.1 % (1.0-4.0); HEMATOCRIT 41.4 % (37.0-47.0); HEMOGLOBIN 13.6 g/dl (12.0-16.0); LYMPH # 2.6 10*3/uL (1.3-4.4); LYMPH % 27.8 % (27.0-41.0); MEAN CELL VOLUME 86.3 fl (81.0-99.0); MEAN CORPUSCULAR HGB 28.3 pg (27.0-31.0); MEAN CORPUSCULAR HGB CONC 32.9 g/dl (33.0-37.0); MEAN PLATELET VOLUME 11.6 fl (9.6-12.3); MONO # 0.6 10*3/uL (0.1-1.0); MONO % 6.8 % (3.0-9.0); NEUT # 5.7 10*3/uL (2.3-7.9); NEUT % 60.4 % (47.0-73.0); PLATELET COUNT AUTOMATED 285 10*3/uL (130-400); RED CELL DISTRI WIDTH 13.9 % (0-14.5); WHITE BLOOD COUNT 9.4 10*3/uL (4.8-10.8)
[2019-02-01 17:42] LABS: WBC 0-2 wbc/hpf (0-5)
[2019-02-01 17:43] LABS: BACTERIA TRACE; EPITHELIAL CELLS 0-2
[2019-02-01 17:49] LABS: ALBUMIN 3.7 gm/dl (3.1-4.5); ALKALINE PHOSPHATASE 126 U/L (45-117); BUN 11 mg/dl (7-24); CHLORIDE 105 mmol/L (98-107); CREATININE 0.81 mg/dL (0.55-1.02); LIPASE 140 U/L (73-393); SGOT/AST 38 IU/L (3-35); SGPT/ALT 61 U/L (12-78); SODIUM 138 mmol/L (136-145)
[2019-02-01] MEDS ORDERED: SEPTDS PO (19:20)
[2019-02-01] MEDS ORDERED: IBUPROFEN600 MG PO (19:20)
[2019-02-01] MEDS ORDERED: NORCO 5-325 TA1 EACH PO (19:20)
== END 2019-02-01 20:10 | disposition home or self-care (01) ==
LOC: ED 16:04
PROVIDERS: Physician Assistant
DX: K80.20 Calculus of gallbladder without cholecystitis without obstruction (principal); N23 Unspecified renal colic; Z87.442 Personal history of urinary calculi; Z88.0 Allergy status to penicillin; Z88.8 Allergy status to other drugs, medicaments and biological substances; Z79.899 Other long term (current) drug therapy; Z79.4 Long term (current) use of insulin

== ENCOUNTER → 2020-01-11 | Outpatient (CLI) | payer OTHER ==
[~2020-01-11] MED LIST changes: +IBUPROFEN600 MG PO; +SEPTDS PO
[2020-01-11 08:25] LABS: BASO % 0.6 % (0.0-1.0); EOS # 0.2 10*3/uL (0.0-0.4); EOS % 3.1 % (1.0-4.0); HEMATOCRIT 41.4 % (37.0-47.0); LYMPH # 1.8 10*3/uL (1.3-4.4); LYMPH % 27.1 % (27.0-41.0); MEAN CELL VOLUME 87.3 fl (81.0-99.0); MEAN CORPUSCULAR HGB 28.1 pg (27.0-31.0); MEAN CORPUSCULAR HGB CONC 32.1 g/dl (33.0-37.0); MONO # 0.5 10*3/uL (0.1-1.0); MONO % 7.7 % (3.0-9.0); NEUT # 4.2 10*3/uL (2.3-7.9); NEUT % 61.2 % (47.0-73.0); PLATELET COUNT AUTOMATED 245 10*3/uL (130-400); RED BLOOD COUNT 4.74 10*6/uL (4.10-5.10); RED CELL DISTRI WIDTH 13.4 % (0-14.5); WHITE BLOOD COUNT 6.8 10*3/uL (4.8-10.8)
[2020-01-11 08:59] LABS: ALBUMIN 3.6 gm/dl (3.1-4.5); BUN 11 mg/dl (7-24); CHLORIDE 104 mmol/L (98-107); CHOLESTEROL 178 mg/dL (<200); CREATININE 0.77 mg/dL (0.55-1.02); POTASSIUM 4.3 mmol/L (3.5-5.1); SGOT/AST 47 IU/L (3-35); SGPT/ALT 84 U/L (12-78); SODIUM 137 mmol/L (136-145); TRIGLYCERIDES 165 mg/dl (<150); VLDL CHOLESTEROL 33 mg/dL (6-40)
[2020-01-11 09:05] LABS: ALKALINE PHOSPHATASE 114 U/L (45-117); FREE T4 1.18 ng/dl (0.76-1.46); HDL CHOLESTEROL 44 mg/dl (40-60); LDL CHOLESTEROL 101 mg/dL (9-159); TOTAL PROTEIN 7.7 gm/dL (6.4-8.2)
[2020-01-11 09:16] LABS: VITAMIN D, 25-HYDROXY 26.8 ng/mL (30-100)
== END | disposition home or self-care (01) ==
LOC: LAB 07:56
PROVIDERS: ATTEND Internal Medicine
DX: Z00.00 Encounter for general adult medical examination without abnormal findings (principal); I10 Essential (primary) hypertension; E11.65 Type 2 diabetes mellitus with hyperglycemia; E23.0 Hypopituitarism; E55.9 Vitamin D deficiency, unspecified; E78.2 Mixed hyperlipidemia

== ENCOUNTER → 2020-06-28 | Outpatient (CLI) | payer OTHER | END | disposition home or self-care (01) | LOC: COVID19 13:48 | PROVIDERS: ATTEND Nurse Practitioner Family | DX: R05 Cough (principal); J01.40 Acute pansinusitis, unspecified; Z20.822 Contact with and (suspected) exposure to COVID-19 ==

== ENCOUNTER → 2020-08-29 | Outpatient (CLI) | payer OTHER ==
[2020-08-29 13:48] LABS: BASO % 0.5 % (0.0-1.0); EOS # 0.3 10*3/uL (0.0-0.4); EOS % 3.6 % (1.0-4.0); HEMATOCRIT 40.9 % (37.0-47.0); LYMPH # 2.4 10*3/uL (1.3-4.4); LYMPH % 26.8 % (27.0-41.0); MEAN CELL VOLUME 86.7 fl (81.0-99.0); MEAN CORPUSCULAR HGB CONC 32.3 g/dl (33.0-37.0); MONO # 0.6 10*3/uL (0.1-1.0); MONO % 6.9 % (3.0-9.0); NEUT # 5.5 10*3/uL (2.3-7.9); PLATELET COUNT AUTOMATED 271 10*3/uL (130-400); RED BLOOD COUNT 4.72 10*6/uL (4.10-5.10); RED CELL DISTRI WIDTH 13.9 % (0-14.5); WHITE BLOOD COUNT 8.9 10*3/uL (4.8-10.8)
[2020-08-29 14:20] LABS: ALBUMIN 3.7 gm/dl (3.1-4.5); BUN 11 mg/dl (7-24); CHLORIDE 106 mmol/L (98-107); CHOLESTEROL 183 mg/dL (<200); CREATININE 0.99 mg/dL (0.55-1.02); POTASSIUM 4.6 mmol/L (3.5-5.1); SGOT/AST 34 IU/L (3-35); SGPT/ALT 66 U/L (12-78); SODIUM 139 mmol/L (136-145)
[2020-08-29 14:28] LABS: ALKALINE PHOSPHATASE 91 U/L (45-117); FREE T4 1.25 ng/dl (0.76-1.46); LDL CHOLESTEROL 103 mg/dL (9-159); THYROID STIM HORMONE (HS) 0.867 uIU/ml (0.358-4.75); TOTAL PROTEIN 7.9 gm/dL (6.4-8.2); TRIGLYCERIDES 154 mg/dl (<150); VITAMIN D, 25-HYDROXY 16.4 ng/mL (30-100)
== END | disposition home or self-care (01) ==
LOC: LAB 13:06
PROVIDERS: ATTEND Internal Medicine
DX: Z00.01 Encounter for general adult medical examination with abnormal findings (principal); E03.9 Hypothyroidism, unspecified; D52.9 Folate deficiency anemia, unspecified; D51.9 Vitamin B12 deficiency anemia, unspecified; R70.0 Elevated erythrocyte sedimentation rate; R79.82 Elevated C-reactive protein (CRP); R74.8 Abnormal levels of other serum enzymes; R79.89 Other specified abnormal findings of blood chemistry; R53.81 Other malaise; E55.9 Vitamin D deficiency, unspecified; Z13.0 Encounter for screening for diseases of the blood and blood-forming organs and certain disorders involving the immune mechanism; Z13.1 Encounter for screening for diabetes mellitus; Z13.21 Encounter for screening for nutritional disorder; Z13.220 Encounter for screening for lipoid disorders

== ENCOUNTER 2021-01-07 14:41 | Emergency (ER) | payer OTHER ==
[~2021-01-07] VITALS: Ht 162.5 cm; Wt 124.7 kg
[2021-01-07 16:57] LABS: BILIRUBIN Negative (Negative); BLOOD Negative (Negative); CLARITY Clear (Clear); COLOR Yellow (Yellow); GLUCOSE 1+ (Negative); KETONE Trace (Negative); LEUKO ESTERASE Negative (Negative); NITRITE Negative (Negative); PH 5.5 (4.5-8.0)
[2021-01-07 17:38] LABS: BACTERIA 2+; RBC 0-2 rbc/hpf (0-2)
[2021-01-07 18:36] LABS: BASO # 0.1 10*3/uL (0.0-0.1); BASO % 0.7 % (0.0-1.0); EOS # 0.3 10*3/uL (0.0-0.4); EOS % 3.9 % (1.0-4.0); HEMATOCRIT 42.4 % (37.0-47.0); LYMPH # 2.9 10*3/uL (1.3-4.4); LYMPH % 32.7 % (27.0-41.0); MEAN CORPUSCULAR HGB 28.2 pg (27.0-31.0); MEAN CORPUSCULAR HGB CONC 32.8 g/dl (33.0-37.0); MEAN PLATELET VOLUME 10.4 fl (9.6-12.3); MONO # 0.6 10*3/uL (0.1-1.0); MONO % 7.3 % (3.0-9.0); NEUT # 4.8 10*3/uL (2.3-7.9); NEUT % 55.1 % (47.0-73.0); PLATELET COUNT AUTOMATED 321 10*3/uL (130-400); RED BLOOD COUNT 4.93 10*6/uL (4.10-5.10); RED CELL DISTRI WIDTH 13.2 % (0-14.5); WHITE BLOOD COUNT 8.8 10*3/uL (4.8-10.8)
[2021-01-07 18:55] LABS: ALBUMIN 3.7 gm/dl (3.1-4.5); BUN 11 mg/dl (7-24); CHLORIDE 104 mmol/L (98-107); CREATININE 0.79 mg/dL (0.55-1.02); LIPASE 99 U/L (73-393); POTASSIUM 3.9 mmol/L (3.5-5.1); SGOT/AST 41 IU/L (3-35); SGPT/ALT 65 U/L (12-78); SODIUM 138 mmol/L (136-145); TOTAL PROTEIN 8.1 gm/dL (6.4-8.2)
[2021-01-07 18:56] LABS: ALKALINE PHOSPHATASE 86 U/L (45-117)
[2021-01-07] MEDS ORDERED: PYRIDIUM200 M1 PO (21:15)
[2021-01-07] MEDS ORDERED: SEPTDS PO (21:15)
== END 2021-01-07 21:41 | disposition home or self-care (01) ==
LOC: ED 14:41
PROVIDERS: Emergency Medicine; Physician Assistant
DX: K59.00 Constipation, unspecified (principal); R30.0 Dysuria; Z88.0 Allergy status to penicillin; Z88.8 Allergy status to other drugs, medicaments and biological substances; Z79.899 Other long term (current) drug therapy

== ENCOUNTER → 2021-03-31 | Outpatient (CLI) | payer OTHER | END | disposition home or self-care (01) | LOC: RAD 10:59 | PROVIDERS: ATTEND Internal Medicine | DX: M25.512 Pain in left shoulder (principal) ==

== ENCOUNTER → 2021-06-11 | Outpatient (CLI) | payer OTHER ==
[2021-06-11 09:05] LABS: ALBUMIN 3.7 gm/dl (3.1-4.5); ALKALINE PHOSPHATASE 76 U/L (45-117); BUN 11 mg/dl (7-24); CHLORIDE 109 mmol/L (98-107); CHOLESTEROL 180 mg/dL (<200); CREATININE 0.76 mg/dL (0.55-1.02); FREE T4 1.26 ng/dl (0.76-1.46); LDL CHOLESTEROL 102 mg/dL (9-159); POTASSIUM 4.1 mmol/L (3.5-5.1); SGOT/AST 26 IU/L (3-35); SGPT/ALT 43 U/L (12-78); SODIUM 139 mmol/L (136-145); TOTAL PROTEIN 7.5 gm/dL (6.4-8.2); TRIGLYCERIDES 140 mg/dl (<150)
[2021-06-11 09:13] LABS: BILIRUBIN Negative (Negative); BLOOD 2+ (Negative); CLARITY Clear (Clear); COLOR Yellow (Yellow); GLUCOSE 1+ (Negative); KETONE Trace (Negative); LEUKO ESTERASE Negative (Negative); NITRITE Negative (Negative); SPECIFIC GRAVITY 1.025 (1.001-1.030); UROBILINOGEN 0.2 E.U./dl (0.0-1.0)
[2021-06-11 10:04] LABS: MUCOUS 1+
[2021-06-12 05:06] LABS: PROLACTIN 8.8 ng/mL (4.8-23.3)
== END | disposition home or self-care (01) ==
LOC: LAB 08:15
PROVIDERS: ATTEND Internal Medicine
DX: E11.65 Type 2 diabetes mellitus with hyperglycemia (principal); E23.0 Hypopituitarism; E55.9 Vitamin D deficiency, unspecified; E78.5 Hyperlipidemia, unspecified

== ENCOUNTER → 2021-12-03 | Outpatient (CLI) | payer OTHER ==
[2021-12-03 15:02] LABS: BUN 21 mg/dl (7-24); CREATININE 0.88 mg/dL (0.55-1.02)
== END | disposition home or self-care (01) ==
LOC: LAB 14:23
PROVIDERS: ATTEND Physician Assistant
DX: D32.9 Benign neoplasm of meninges, unspecified (principal)

== ENCOUNTER → 2022-03-11 | Outpatient (CLI) | payer OTHER | END | disposition home or self-care (01) | LOC: LAB 00:12 | PROVIDERS: ATTEND Internal Medicine | DX: R73.09 Other abnormal glucose (principal) ==

== ENCOUNTER → 2022-08-26 | Outpatient (CLI) | payer OTHER ==
[2022-08-26 09:00] LABS: BASO # 0.1 10*3/uL (0.0-0.1); BASO % 0.7 % (0.0-1.0); EOS # 0.2 10*3/uL (0.0-0.4); EOS % 2.4 % (1.0-4.0); HEMATOCRIT 43.2 % (37.0-47.0); LYMPH # 2.3 10*3/uL (1.3-4.4); LYMPH % 25.1 % (27.0-41.0); MEAN CELL VOLUME 86.7 fl (81.0-99.0); MEAN CORPUSCULAR HGB 28.9 pg (27.0-31.0); MEAN CORPUSCULAR HGB CONC 33.3 g/dl (33.0-37.0); MEAN PLATELET VOLUME 11.3 fl (9.6-12.3); MONO # 0.6 10*3/uL (0.1-1.0); MONO % 6.5 % (3.0-9.0); PLATELET COUNT AUTOMATED 276 10*3/uL (130-400); RED BLOOD COUNT 4.98 10*6/uL (4.10-5.10); RED CELL DISTRI WIDTH 13.5 % (0-14.5); WHITE BLOOD COUNT 9.2 10*3/uL (4.8-10.8)
[2022-08-26 09:34] LABS: ALKALINE PHOSPHATASE 75 U/L (46-116); BUN 12 mg/dl (9-23); CHLORIDE 103 mmol/L (98-107); POTASSIUM 4.2 mmol/L (3.4-5.1); SGPT/ALT 23 U/L (10-49); T3 UPTAKE 25.9 % (22.4-36.7); THYROID STIM HORMONE (HS) 0.102 uIU/ml (0.550-4.780); THYROXINE (T4) TOTAL 11.7 ug/dl (4.5-10.9); TOTAL PROTEIN 7.2 gm/dL (6.0-8.0)
== END | disposition home or self-care (01) ==
LOC: LAB 08:39
PROVIDERS: ATTEND Internal Medicine
DX: R00.2 Palpitations (principal)

== ENCOUNTER 2022-09-01 10:41 | Inpatient (IN) | payer OTHER ==
[~2022-09-01] VITALS: Ht 165.1 cm; Wt 119.4 kg
[2022-09-01 10:48] VITALS: BP 167/83
[2022-09-01 11:07] LABS: BASO % 0.6 % (0.0-1.0); EOS # 0.1 10*3/uL (0.0-0.4); EOS % 1.8 % (1.0-4.0); HEMATOCRIT 42.7 % (37.0-47.0); LYMPH # 1.8 10*3/uL (1.3-4.4); LYMPH % 26.4 % (27.0-41.0); MEAN CELL VOLUME 87.9 fl (81.0-99.0); MEAN CORPUSCULAR HGB 29.2 pg (27.0-31.0); MEAN CORPUSCULAR HGB CONC 33.3 g/dl (33.0-37.0); MONO # 0.4 10*3/uL (0.1-1.0); MONO % 6.2 % (3.0-9.0); NEUT # 4.4 10*3/uL (2.3-7.9); NEUT % 64.7 % (47.0-73.0); PLATELET COUNT AUTOMATED 261 10*3/uL (130-400); RED BLOOD COUNT 4.86 10*6/uL (4.10-5.10); RED CELL DISTRI WIDTH 13.3 % (0-14.5); WHITE BLOOD COUNT 6.8 10*3/uL (4.8-10.8)
[2022-09-01] MEDS ORDERED: COREG12.5 M1 PO (11:14)
[2022-09-01] MEDS ORDERED: ZOCOR10 MG PO (11:15)
[2022-09-01] MEDS ORDERED: LEVOTHYROXINE200 MC2 PO (11:16)
[2022-09-01] MEDS ORDERED: Synthroid,Lev200 MCG PO (11:17)
[2022-09-01 11:24] LABS: ACT PARTIAL THROMBO TIME 27.1 SECONDS (20.0-32.1)
[2022-09-01 11:29] LABS: LIPASE 42 U/L (12-53)
[2022-09-01 11:32] LABS: ALKALINE PHOSPHATASE 71 U/L (46-116); BUN 8 mg/dl (9-23); CHLORIDE 106 mmol/L (98-107); POTASSIUM 4.2 mmol/L (3.4-5.1); SGPT/ALT 22 U/L (10-49); TOTAL PROTEIN 7.3 gm/dL (6.0-8.0)
[2022-09-01 13:12] VITALS: BP 149/83
[2022-09-01] MEDS ORDERED: Synthroid,Lev150 MCG PO (15:51)
[2022-09-01 17:15] VITALS: BP 148/82
[2022-09-01 20:00] VITALS: BP 148/80
[2022-09-01 20:10] VITALS: BP 179/86
[2022-09-01] MEDS ORDERED: GLYBURIDE5 MG PO (20:36)
[2022-09-01] MEDS ORDERED: MELOXICAM7.5 MG PO (20:36)
[2022-09-01] MEDS ORDERED: MOUNJARO10 MG/0.1 SQ (20:40)
[2022-09-02] VITALS: BP 135/71
[2022-09-02 08:00] VITALS: BP 152/87
[2022-09-02] MEDS ORDERED: LEXAPRO5 M1 PO (08:29)
[2022-09-02] MEDS ORDERED: LEVOTHYROXINE175 MCG PO (08:29)
== END 2022-09-02 16:56 | disposition home or self-care (01) | DRG 313 ==
LOC: ED 10:41 → 4E 12:04 → EDHOLD 12:04 → 4E 18:30
PROVIDERS: Emergency Medicine; ADMIT Internal Medicine; ATTEND Internal Medicine
PROC: 4A02XM4 Measurement of Cardiac Total Activity, External Approach (ICD-10-PCS; principal; 2022-09-02)
PROC: 3E073KZ Introduction of Other Diagnostic Substance into Coronary Artery, Percutaneous Approach (ICD-10-PCS; 2022-09-02)
DX: R07.89 Other chest pain (principal); E03.9 Hypothyroidism, unspecified; I10 Essential (primary) hypertension; E78.5 Hyperlipidemia, unspecified; E11.9 Type 2 diabetes mellitus without complications; F41.9 Anxiety disorder, unspecified; E66.01 Morbid (severe) obesity due to excess calories; Z88.0 Allergy status to penicillin; Z88.5 Allergy status to narcotic agent; Z86.711 Personal history of pulmonary embolism; Z86.718 Personal history of other venous thrombosis and embolism; Z88.8 Allergy status to other drugs, medicaments and biological substances; Z79.1 Long term (current) use of non-steroidal anti-inflammatories (NSAID); Z79.899 Other long term (current) drug therapy

== ENCOUNTER → 2022-11-04 | Outpatient (CLI) | payer OTHER ==
[~2022-11-04] MED LIST changes: +COREG12.5 M1 PO; +LEVOTHYROXINE175 MCG PO; +LEVOTHYROXINE200 MC2 PO; +LEXAPRO5 M1 PO; +MELOXICAM7.5 MG PO; +MOUNJARO10 MG/0.1 SQ; +Synthroid,Lev150 MCG PO; +Synthroid,Lev200 MCG PO; +ZOCOR10 MG PO
== END | disposition home or self-care (01) ==
LOC: US 12:57
PROVIDERS: ATTEND Physician Assistant
DX: M79.604 Pain in right leg (principal); R60.9 Edema, unspecified

== ENCOUNTER → 2022-12-07 | Outpatient (CLI) | payer OTHER ==
[2022-12-07 12:52] LABS: T3 UPTAKE 22.8 % (22.4-36.7); THYROXINE (T4) TOTAL 11.8 ug/dl (4.5-10.9)
== END | disposition home or self-care (01) ==
LOC: LAB 11:58
PROVIDERS: ATTEND Internal Medicine
DX: E11.65 Type 2 diabetes mellitus with hyperglycemia (principal); I10 Essential (primary) hypertension; E03.4 Atrophy of thyroid (acquired)

== ENCOUNTER 2023-06-13 10:28 | Emergency (ER) | payer OTHER ==
[~2023-06-13] VITALS: Ht 165.1 cm; Wt 116.6 kg
[2023-06-13] MEDS ORDERED: NOVOLOG FL100 UNIT/2 SQ (11:22)
[2023-06-13] MEDS ORDERED: Ondansetron Hydrochloride 4 MG/2 ML VIAL IV ONE (11:45)
[2023-06-13] MEDS ORDERED: SODIUM CHLORIDE 0.9% 1,000 ML IV ONE (11:45)
[2023-06-13 11:50] LABS: BILIRUBIN Negative (Negative); BLOOD Negative (Negative); CLARITY Clear (Clear); COLOR Yellow (Yellow); GLUCOSE 3+ (Negative); KETONE Trace (Negative); LEUKO ESTERASE Negative (Negative); NITRITE Negative (Negative); PH 5.5 (4.5-8.0); SPECIFIC GRAVITY 1.025 (1.001-1.030); UROBILINOGEN 0.2 E.U./dl (0.0-1.0)
[2023-06-13] MEDS ORDERED: Ketorolac Tromethamine 30 MG/ML VIAL IV ONE (11:50)
[2023-06-13 11:56] LABS: BACTERIA 3+
[2023-06-13 11:56] LABS: BASO # 0.1 10*3/uL (0.0-0.1); BASO % 0.6 % (0.0-1.0); EOS # 0.2 10*3/uL (0.0-0.4); EOS % 2.7 % (1.0-4.0); LYMPH % 23.7 % (27.0-41.0); MEAN CELL VOLUME 86.2 fl (81.0-99.0); MEAN CORPUSCULAR HGB 28.2 pg (27.0-31.0); MEAN CORPUSCULAR HGB CONC 32.7 g/dl (33.0-37.0); MONO # 0.6 10*3/uL (0.1-1.0); MONO % 7.1 % (3.0-9.0); NEUT # 5.6 10*3/uL (2.3-7.9); NEUT % 65.5 % (47.0-73.0); PLATELET COUNT AUTOMATED 266 10*3/uL (130-400); RED BLOOD COUNT 5.22 10*6/uL (4.10-5.10); RED CELL DISTRI WIDTH 13.2 % (0-14.5); WHITE BLOOD COUNT 8.6 10*3/uL (4.8-10.8)
[2023-06-13] MEDS ORDERED: Ceftriaxone Sodium 1 GM/10 ML SYR IV ONE (12:15)
[2023-06-13 12:17] LABS: ALKALINE PHOSPHATASE 83 U/L (46-116); BUN 8 mg/dl (9-23); CHLORIDE 104 mmol/L (98-107); LIPASE 39 U/L (12-53); POTASSIUM 4.2 mmol/L (3.4-5.1); SGPT/ALT 24 U/L (5-49); TOTAL PROTEIN 7.5 gm/dL (6.0-8.0)
[2023-06-13] MEDS ORDERED: MELOXICAM15 MG PO (13:36)
[2023-06-13] MEDS ORDERED: CIPRO500 MG PO (13:36)
[2023-06-13] MEDS ORDERED: CYCLOBENZAPRINE5 M3 PO (13:36)
== END 2023-06-13 13:46 | disposition home or self-care (01) ==
LOC: ED 10:28
PROVIDERS: Emergency Medicine; Internal Medicine
DX: N39.0 Urinary tract infection, site not specified (principal); M54.50 Low back pain, unspecified; E11.9 Type 2 diabetes mellitus without complications; I10 Essential (primary) hypertension; E03.9 Hypothyroidism, unspecified; Z88.0 Allergy status to penicillin; Z88.5 Allergy status to narcotic agent; Z88.8 Allergy status to other drugs, medicaments and biological substances; Z98.890 Other specified postprocedural states

== ENCOUNTER 2023-07-17 18:28 | Emergency (ER) | payer OTHER ==
[~2023-07-17] VITALS: Ht 162.5 cm; Wt 113.4 kg
[~2023-07-17 18:28] MED LIST changes: +CYCLOBENZAPRINE5 M3 PO; +MELOXICAM15 MG PO; +NOVOLOG FL100 UNIT/2 SQ
[2023-07-17] MEDS ORDERED: Labetalol Hydrochloride 20 MG/4 ML SYR IV ONE (18:45)
[2023-07-17 18:56] LABS: BASO # 0.1 10*3/uL (0.0-0.1); BASO % 0.7 % (0.0-1.0); EOS # 0.3 10*3/uL (0.0-0.4); EOS % 3.5 % (1.0-4.0); HEMATOCRIT 43.6 % (37.0-47.0); LYMPH # 2.8 10*3/uL (1.3-4.4); LYMPH % 34.9 % (27.0-41.0); MEAN CELL VOLUME 86.3 fl (81.0-99.0); MEAN CORPUSCULAR HGB 28.1 pg (27.0-31.0); MEAN CORPUSCULAR HGB CONC 32.6 g/dl (33.0-37.0); MEAN PLATELET VOLUME 10.6 fl (9.6-12.3); MONO # 0.7 10*3/uL (0.1-1.0); MONO % 8.7 % (3.0-9.0); NEUT # 4.2 10*3/uL (2.3-7.9); NEUT % 51.8 % (47.0-73.0); PLATELET COUNT AUTOMATED 266 10*3/uL (130-400); RED BLOOD COUNT 5.05 10*6/uL (4.10-5.10); RED CELL DISTRI WIDTH 13.1 % (0-14.5); WHITE BLOOD COUNT 8.1 10*3/uL (4.8-10.8)
[2023-07-17 19:16] LABS: ALKALINE PHOSPHATASE 84 U/L (46-116); BUN 13 mg/dl (9-23); CHLORIDE 107 mmol/L (98-107); POTASSIUM 3.7 mmol/L (3.4-5.1); SGPT/ALT 21 U/L (5-49); TOTAL PROTEIN 7.7 gm/dL (6.0-8.0)
[2023-07-17 19:23] LABS: ACT PARTIAL THROMBO TIME 26.3 SECONDS (20.0-32.1)
[2023-07-17] MEDS ORDERED: NORVASC2.5 MG PO (21:00)
== END 2023-07-17 21:24 | disposition home or self-care (01) ==
LOC: ED 18:28
PROVIDERS: Emergency Medicine
DX: I16.0 Hypertensive urgency (principal); E11.9 Type 2 diabetes mellitus without complications; Z88.0 Allergy status to penicillin; Z88.8 Allergy status to other drugs, medicaments and biological substances; Z88.5 Allergy status to narcotic agent; Z79.2 Long term (current) use of antibiotics; Z79.899 Other long term (current) drug therapy; Z79.4 Long term (current) use of insulin

== ENCOUNTER → 2023-08-23 | Outpatient (CLI) | payer OTHER ==
[~2023-08-23] MED LIST changes: +NORVASC2.5 MG PO
[2023-08-23 14:10] LABS: BASO # 0.1 10*3/uL (0.0-0.1); BASO % 0.6 % (0.0-1.0); EOS # 0.3 10*3/uL (0.0-0.4); EOS % 3.6 % (1.0-4.0); HEMATOCRIT 42.3 % (37.0-47.0); LYMPH # 2.3 10*3/uL (1.3-4.4); LYMPH % 27.8 % (27.0-41.0); MEAN CELL VOLUME 87.8 fl (81.0-99.0); MEAN CORPUSCULAR HGB 28.2 pg (27.0-31.0); MEAN CORPUSCULAR HGB CONC 32.2 g/dl (33.0-37.0); MEAN PLATELET VOLUME 10.7 fl (9.6-12.3); MONO # 0.6 10*3/uL (0.1-1.0); MONO % 7.6 % (3.0-9.0); NEUT % 60.2 % (47.0-73.0); PLATELET COUNT AUTOMATED 273 10*3/uL (130-400); RED BLOOD COUNT 4.82 10*6/uL (4.10-5.10); RED CELL DISTRI WIDTH 13.2 % (0-14.5); WHITE BLOOD COUNT 8.4 10*3/uL (4.8-10.8)
[2023-08-23 14:45] LABS: ALKALINE PHOSPHATASE 86 U/L (46-116); BUN 13 mg/dl (9-23); CHLORIDE 105 mmol/L (98-107); CHOLESTEROL 133 mg/dL (<200); FREE T4 1.34 ng/dl (0.89-1.76); LDL CHOLESTEROL 44 mg/dL (9-159); POTASSIUM 4.1 mmol/L (3.4-5.1); SGPT/ALT 25 U/L (5-49); TOTAL PROTEIN 7.5 gm/dL (6.0-8.0); TRIGLYCERIDES 184 mg/dl (<150)
[2023-08-23 17:48] LABS: VITAMIN D, 25-HYDROXY 31.8 ng/mL (30-100)
== END | disposition home or self-care (01) ==
LOC: LAB 13:53
PROVIDERS: ATTEND Internal Medicine
DX: Z13.0 Encounter for screening for diseases of the blood and blood-forming organs and certain disorders involving the immune mechanism (principal); Z13.1 Encounter for screening for diabetes mellitus; Z13.21 Encounter for screening for nutritional disorder; Z13.220 Encounter for screening for lipoid disorders; Z13.228 Encounter for screening for other metabolic disorders; Z13.29 Encounter for screening for other suspected endocrine disorder; Z13.6 Encounter for screening for cardiovascular disorders; Z13.89 Encounter for screening for other disorder; Z13.9 Encounter for screening, unspecified; I10 Essential (primary) hypertension; F41.1 Generalized anxiety disorder; E11.65 Type 2 diabetes mellitus with hyperglycemia

== ENCOUNTER → 2024-05-27 | Outpatient (CLI) | payer OTHER ==
[2024-05-27 08:33] LABS: BASO % 0.5 % (0.0-1.0); EOS # 0.2 10*3/uL (0.0-0.4); HEMATOCRIT 40.5 % (37.0-47.0); MEAN CELL VOLUME 87.9 fl (81.0-99.0); MEAN CORPUSCULAR HGB 28.9 pg (27.0-31.0); MEAN CORPUSCULAR HGB CONC 32.8 g/dl (33.0-37.0); MEAN PLATELET VOLUME 11.1 fl (9.6-12.3); MONO # 0.6 10*3/uL (0.1-1.0); MONO % 7.6 % (3.0-9.0); NEUT # 4.9 10*3/uL (2.3-7.9); NEUT % 61.5 % (47.0-73.0); PLATELET COUNT AUTOMATED 271 10*3/uL (130-400); RED BLOOD COUNT 4.61 10*6/uL (4.10-5.10); RED CELL DISTRI WIDTH 13.4 % (0-14.5); WHITE BLOOD COUNT 7.9 10*3/uL (4.8-10.8)
[2024-05-27 09:04] LABS: ALKALINE PHOSPHATASE 87 U/L (46-116); BUN 12 mg/dl (9-23); CHLORIDE 103 mmol/L (98-107); CHOLESTEROL 159 mg/dL (<200); FREE T4 1.32 ng/dl (0.89-1.76); LDL CHOLESTEROL 93 mg/dL (9-159); POTASSIUM 4.3 mmol/L (3.4-5.1); SGPT/ALT 27 U/L (5-49); TOTAL PROTEIN 7.2 gm/dL (6.0-8.0); TRIGLYCERIDES 93 mg/dl (<150)
[2024-05-27 09:17] LABS: VITAMIN D, 25-HYDROXY 35.4 ng/mL (30-100)
== END | disposition home or self-care (01) ==
LOC: LAB 07:53
PROVIDERS: ATTEND Internal Medicine
DX: E11.65 Type 2 diabetes mellitus with hyperglycemia (principal); E55.9 Vitamin D deficiency, unspecified; E03.9 Hypothyroidism, unspecified; R53.83 Other fatigue; E53.9 Vitamin B deficiency, unspecified

== ENCOUNTER → 2025-01-11 | Outpatient (CLI) | payer OTHER ==
[2025-01-11 10:00] LABS: BASO # 0.1 10*3/uL (0.0-0.1); BASO % 0.8 % (0.0-1.0); EOS # 0.3 10*3/uL (0.0-0.4); EOS % 3.5 % (1.0-4.0); MEAN CELL VOLUME 87.4 fl (81.0-99.0); MEAN CORPUSCULAR HGB 28.6 pg (27.0-31.0); MEAN PLATELET VOLUME 10.7 fl (9.6-12.3); MONO # 0.7 10*3/uL (0.1-1.0); MONO % 7.5 % (3.0-9.0); NEUT # 5.6 10*3/uL (2.3-7.9); NEUT % 60.3 % (47.0-73.0); NUCLEATED RED BLOOD CELL 0.0 % (0.0-0.0); NUCLEATED RED BLOOD CELL 0.0 10*3/uL (0.0-0.0); PLATELET COUNT AUTOMATED 297 10*3/uL (130-400); RED CELL DISTRI WIDTH 13.3 % (0-14.5)
[2025-01-11 10:26] LABS: BUN 12 mg/dl (9-23); FREE T4 1.56 ng/dl (0.89-1.76); LDL CHOLESTEROL 101 mg/dL (9-159); SGPT/ALT 27 U/L (5-49)
[2025-01-11 11:26] LABS: VITAMIN D, 25-HYDROXY 31.7 ng/mL (30-100)
== END | disposition home or self-care (01) ==
LOC: LAB 09:24
PROVIDERS: ATTEND Internal Medicine
DX: I10 Essential (primary) hypertension (principal); E11.65 Type 2 diabetes mellitus with hyperglycemia; E23.0 Hypopituitarism; E03.9 Hypothyroidism, unspecified; R53.83 Other fatigue; E53.9 Vitamin B deficiency, unspecified; E55.9 Vitamin D deficiency, unspecified

== ENCOUNTER → 2025-01-22 | Outpatient (CLI) | payer OTHER | END | disposition home or self-care (01) | LOC: MAMMO 12:31 | PROVIDERS: ATTEND Internal Medicine | DX: Z12.31 Encounter for screening mammogram for malignant neoplasm of breast (principal) ==